=== PATIENT | male | born 1985 | race Caucasian/White ===

== ENCOUNTER 2018-09-17 17:49 | Emergency (ER) | payer OTHER | END 2018-09-17 18:32 | disposition home or self-care (01) | LOC: EDH 17:49 | DX: S00.33XA Contusion of nose, initial encounter (principal); Z88.0 Allergy status to penicillin; Z72.0 Tobacco use; Y04.8XXA Assault by other bodily force, initial encounter; Y93.89 Activity, other specified; Y92.89 Other specified places as the place of occurrence of the external cause; Y99.8 Other external cause status | CPT/HCPCS: 99281 ==

== ENCOUNTER 2019-04-23 13:51 | Emergency (ER) | payer SELFPAY ==
[2019-04-23] MEDS ORDERED: KETOROLAC TROMETHAMINE 60 MG/2 ML VIAL ONE (14:15)
== END 2019-04-23 14:37 | disposition home or self-care (01) ==
LOC: EDH 13:51
DX: K08.89 Other specified disorders of teeth and supporting structures (principal); Z88.0 Allergy status to penicillin; Z72.0 Tobacco use
CPT/HCPCS: 96372; 99283; J1885